=== PATIENT | male | born 1970 | race Caucasian/White ===

== ENCOUNTER 2022-09-05 13:47 | Emergency (ER) | payer OTHER ==
[~2022-09-05] VITALS: Ht 195.6 cm; Wt 102.1 kg
[2022-09-05] MEDS ORDERED: LOTRONEX1 MG PO (13:54)
[2022-09-05] MEDS ORDERED: AMITRIPTYLINE H10 MG PO (13:54)
== END 2022-09-05 16:45 | disposition home or self-care (01) ==
LOC: ER 13:47
DX: K40.90 Unilateral inguinal hernia, without obstruction or gangrene, not specified as recurrent (principal)